=== PATIENT | female | born 1995 | race Hispanic/Latino ===

== ENCOUNTER 2017-05-12 20:48 | Emergency (ER) | payer MEDICAID ==
[2017-05-12 21:17] LABS: BASOPHILS % (AUTO) 0.4 % (0.0-5.0); EOSINOPHILS % (AUTO) 0.7 % (0.0-8.0); HEMATOCRIT 37.4 % (36-48); LYMPHOCYTES % (AUTO) 22.4 % (21.0-51.0); MEAN CORPUSCULAR HEMOGLOBIN 30.7 pg (27.0-33.0); MEAN CORPUSCULAR HGB CONC 35.5 g/dL (32.0-36.0); MEAN CORPUSCULAR VOLUME 86.5 fL (80-100); NEUTROPHILS % (AUTO) 71.5 % (40.0-77.0); PLATELET COUNT (AUTO) 283 K/uL (130-400); RED BLOOD CELL COUNT(AUTO) 4.33 MIL/uL (4.00-5.50); RED CELL DISTRIBUTION WIDTH 12.2 % (11.0-15.5); WHITE BLOOD COUNT (AUTO) 10.9 K/uL (4.8-10.8)
[2017-05-12 21:27] LABS: CREATININE 0.6 mg/dL (0.5-1.5); POTASSIUM 3.5 mmol/L (3.5-5.1)
[2017-05-12 21:31] LABS: ALBUMIN 3.2 g/dL (3.5-5.0); BILIRUBIN,TOTAL 0.3 mg/dL (0.2-1.0); TOTAL PROTEIN, SERUM 7.7 g/dL (6.0-8.3)
[2017-05-12] MEDS ORDERED: ONDANSETRON HCL 4 MG/2 ML VIAL ONE (22:27)
== END 2017-05-13 00:08 | disposition home or self-care (01) ==
LOC: EDH 20:48
DX: O21.0 Mild hyperemesis gravidarum (principal); O99.511 Diseases of the respiratory system complicating pregnancy, first trimester; J45.909 Unspecified asthma, uncomplicated; Z3A.13 13 weeks gestation of pregnancy
CPT/HCPCS: 36415; 80053; 85025; 96361; 96374; 99285; J2405

== ENCOUNTER 2018-02-08 15:41 | Emergency (ER) | payer OTHER ==
[~2018-02-08 15:41] MED LIST: FERR-82 PO; FOLI0.4T2 PO; PREN-66 PO
[2018-02-08 16:32] LABS: RAPID GROUP A STREP NEGATIVE (NEGATIVE)
== END 2018-02-08 17:28 | disposition home or self-care (01) ==
LOC: EDH 15:41
DX: J06.9 Acute upper respiratory infection, unspecified (principal); B97.89 Other viral agents as the cause of diseases classified elsewhere; J45.909 Unspecified asthma, uncomplicated; Z88.0 Allergy status to penicillin; Z98.890 Other specified postprocedural states
CPT/HCPCS: 87804; 87880

== ENCOUNTER 2019-09-06 01:43 | Emergency (ER) | payer OTHER ==
[2019-09-06] MEDS ORDERED: OXYMETAZOLINE HCL SPRAY 15 ML BOTTLE ONE (02:29)
[2019-09-06] MEDS ORDERED: DIPHENHYDRAMINE HCL 25 MG CAPSULE ONE (02:38)
== END 2019-09-06 03:55 | disposition home or self-care (01) ==
LOC: EDH 01:43
DX: S02.2XXA Fracture of nasal bones, initial encounter for closed fracture (principal); R09.81 Nasal congestion; J45.909 Unspecified asthma, uncomplicated; Z88.0 Allergy status to penicillin; X58.XXXA Exposure to other specified factors, initial encounter; Y93.89 Activity, other specified; Y92.89 Other specified places as the place of occurrence of the external cause; Y99.8 Other external cause status
CPT/HCPCS: 70486; 81025; 99284; Q0163

== ENCOUNTER 2020-07-02 07:27 | Emergency (ER) | payer OTHER ==
[~2020-07-02 07:27] MED LIST changes: -FOLI0.4T2 PO; +FOLI0.4T6 PO
[2020-07-02] MEDS ORDERED: BENZONATATE 100 MG CAPSULE PO ONE (07:41)
[2020-07-02] MEDS ORDERED: ACETAMINOPHEN 325 MG TAB ONE (08:10)
[2020-07-02] MEDS ORDERED: PREDNISONE 20 MG TABLET ONE (08:17)
== END 2020-07-02 08:29 | disposition home or self-care (01) ==
LOC: EDH 07:27
DX: J06.9 Acute upper respiratory infection, unspecified (principal); J45.909 Unspecified asthma, uncomplicated; Z88.0 Allergy status to penicillin; Z86.16 Personal history of COVID-19

== ENCOUNTER 2020-12-04 13:27 | Emergency (ER) | payer OTHER ==
[~2020-12-04] VITALS: Ht 162.6 cm; Wt 93.0 kg
[2020-12-04 14:00] VITALS: BP 143/70
[2020-12-04 14:22] LABS: BASOPHILS % (AUTO) 0.3 % (0.0-5.0); EOSINOPHILS % (AUTO) 0.4 % (0.0-8.0); LYMPHOCYTES % (AUTO) 6.2 % (21.0-51.0); MEAN CORPUSCULAR HEMOGLOBIN 28.3 pg (27.0-33.0); MEAN CORPUSCULAR HGB CONC 34.1 g/dL (32.0-36.0); MONOCYTES % (AUTO) 3.1 % (3.0-13.0); NEUTROPHILS % (AUTO) 89.5 % (40.0-77.0); PLATELET COUNT (AUTO) 314 K/uL (130-400); RED BLOOD CELL COUNT(AUTO) 4.46 MIL/uL (4.00-5.50); WHITE BLOOD COUNT (AUTO) 13.3 K/uL (4.8-10.8)
[2020-12-04] MEDS ORDERED: 0.9%NACL 1000ML 1,000 ML IV SCH (14:30)
[2020-12-04] MEDS ORDERED: ACETAMINOPHEN 500 MG TABLET PO ONE (14:30)
[2020-12-04 14:36] LABS: CREATININE 0.6 mg/dL (0.5-1.5); POTASSIUM 3.6 mmol/L (3.5-5.1)
[2020-12-04 14:42] LABS: ALBUMIN 3.1 g/dL (3.5-5.0); BILIRUBIN,TOTAL 0.5 mg/dL (0.2-1.0)
[2020-12-04 14:46] LABS: APPEARANCE,URINE CLEAR (CLEAR); BILIRUBIN,URINE NEGATIVE (NEGATIVE); COLOR,URINE YELLOW (YELLOW); GLUCOSE, URINE (UA) NEGATIVE (NEGATIVE); KETONES,URINE >=80 mg/dL (NEGATIVE); LEUKOCYTE ESTERASE ,URINE NEGATIVE (NEGATIVE); NITRATE,URINE NEGATIVE (NEGATIVE); OCCULT BLOOD,URINE NEGATIVE (NEGATIVE); PH,URINE 8.5 (5.0-8.0); PROTEIN,URINE TRACE mg/dL (NEGATIVE)
[2020-12-04 14:47] LABS: INR 0.99 (0.85-1.15); PROTHROMBIN TIME 10.8 SEC (9.6-11.6)
[2020-12-04 15:00] LABS: BACTERIA,URINE Few /HPF (None Seen); MUCUS,URINE Rare LPF (None Seen); RBC,URINE 0-1 /HPF (0-1); SQUAMOUS EPITHELIAL CELL,UR Few /HPF (0-2); WBC,URINE 0-1 /HPF (0-1)
[2020-12-04] MEDS ORDERED: CEFTRIAXONE 1G VIAL IVP ONE (15:30)
[2020-12-04 15:31] LABS: CRP QUANTITATIVE 59.6 mg/L (0.00-9.0)
[2020-12-04] MEDS ORDERED: ACET-2247 PO (16:09)
[2020-12-04] MEDS ORDERED: CEPH500B PO (16:09)
== END 2020-12-04 16:50 | disposition home or self-care (01) ==
LOC: EDH 13:27
DX: O23.41 Unspecified infection of urinary tract in pregnancy, first trimester (principal); O99.511 Diseases of the respiratory system complicating pregnancy, first trimester; J06.9 Acute upper respiratory infection, unspecified; Z20.822 Contact with and (suspected) exposure to COVID-19; Z3A.12 12 weeks gestation of pregnancy
CPT/HCPCS: 36415; 76801; 80053; 81001; 83605; 84702; 85025; 85610; 85730; 86140; 87040 ×2; 87635; 87804 ×2; 87880; 93005; 96361 ×2; 96374; 99285; C9803

== ENCOUNTER 2021-04-02 00:33 | Observation (INO) | payer OTHER ==
[~2021-04-02] VITALS: Ht 154.9 cm; Wt 97.5 kg
[~2021-04-02 00:33] MED LIST changes: +ACET-2247 PO; +CEPH500B PO
[2021-04-02 00:36] VITALS: BP 118/73
[2021-04-02] MEDS ORDERED: LACTATED RINGERS 1000ML 1,000 ML IV SCH (01:00)
[2021-04-02 01:20] LABS: APPEARANCE,URINE Clear (CLEAR); BILIRUBIN,URINE Negative (NEGATIVE); COLOR,URINE Yellow (YELLOW); GLUCOSE, URINE (UA) Negative (NEGATIVE); KETONES,URINE Negative (NEGATIVE); LEUKOCYTE ESTERASE ,URINE Trace (NEGATIVE); NITRATE,URINE Negative (NEGATIVE); OCCULT BLOOD,URINE Negative (NEGATIVE); PH,URINE 6.5 (5.0-8.0); PROTEIN,URINE Trace mg/dL (NEGATIVE)
[2021-04-02 01:27] LABS: AMPHET/METH SCREEN,URINE NEGATIVE (NEGATIVE); BARBITURATE SCREEN, URINE NEGATIVE (NEGATIVE); BENZODIAZEPINES SCREEN,URINE NEGATIVE (NEGATIVE); CANNABINOID SCREEN,URINE NEGATIVE (NEGATIVE); COCAINE SCREEN,URINE NEGATIVE (NEGATIVE); OPIATE SCREEN,URINE NEGATIVE (NEGATIVE); PHENCYCLIDINE SCREEN,URINE NEGATIVE (NEGATIVE)
[2021-04-02 01:36] LABS: INFLUENZA TYPE A POSITIVE FOR TYPE A (NEG); INFLUENZA TYPE B NEGATIVE FOR TYPE B (NEG)
[2021-04-02 01:40] LABS: BACTERIA,URINE None Seen /HPF (None Seen); RBC,URINE None Seen /HPF (0-1); SQUAMOUS EPITHELIAL CELL,UR Few /HPF (0-2); WBC,URINE 0-1 /HPF (0-1)
[2021-04-02 02:07] LABS: AMPHET/METH SCREEN,URINE NEGATIVE (NEGATIVE); BARBITURATE SCREEN, URINE NEGATIVE (NEGATIVE); BENZODIAZEPINES SCREEN,URINE NEGATIVE (NEGATIVE); CANNABINOID SCREEN,URINE NEGATIVE (NEGATIVE); COCAINE SCREEN,URINE NEGATIVE (NEGATIVE); OPIATE SCREEN,URINE NEGATIVE (NEGATIVE); PHENCYCLIDINE SCREEN,URINE NEGATIVE (NEGATIVE)
[2021-04-02] MEDS ORDERED: OSELTAMIVIR PHOSPHATE 75 MG CAP ONE (02:11)
[2021-04-02] MEDS ORDERED: GUAIFENESIN-DM 200/20 MG 10 ML ONE (02:11)
[2021-04-02] MEDS ORDERED: OSELTAMIVIR PHOSPHATE 75 MG CAP PO SCH (02:30)
[2021-04-02] MEDS ORDERED: GUAIFENESIN-DM 200/20 MG 10 ML PO ONE (02:30)
== END 2021-04-02 02:55 | disposition home or self-care (01) ==
LOC: EDH 00:33 → LDH 00:34
PROVIDERS: ADMIT Obstetrics & Gynecology; ATTEND Obstetrics & Gynecology
DX: O60.03 Preterm labor without delivery, third trimester (principal); Z20.822 Contact with and (suspected) exposure to COVID-19; O26.893 Other specified pregnancy related conditions, third trimester; R05.9 Cough, unspecified; R50.9 Fever, unspecified; R09.81 Nasal congestion; R52 Pain, unspecified; O99.613 Diseases of the digestive system complicating pregnancy, third trimester; K59.00 Constipation, unspecified; Z3A.31 31 weeks gestation of pregnancy
CPT/HCPCS: 80305 ×2; 81001; 87426; 87804 ×2; 96360; G0378 ×2; G0379

== ENCOUNTER 2023-07-08 21:50 | Emergency (ER) | payer OTHER ==
[~2023-07-08] VITALS: Ht 162.6 cm; Wt 85.3 kg
[2023-07-08 22:23] VITALS: BP 135/103; PULSE 101; RESP 18; O2SAT 98
[2023-07-08 22:41] LABS: BASOPHILS # (AUTO) 0.04 K/uL (0.00-0.20); BASOPHILS % (AUTO) 0.5 % (0.0-5.0); EOSINOPHILS # (AUTO) 0.16 K/uL (0.00-0.70); EOSINOPHILS % (AUTO) 1.9 % (0.0-8.0); HEMATOCRIT 39.1 % (36-48); IMMATURE GRANULOCYTE ABSOLUTE 0.03 K/uL (0-1); MEAN CORPUSCULAR HEMOGLOBIN 28.5 pg (27.0-33.0); MEAN CORPUSCULAR VOLUME 81.5 fL (79-99); MONOCYTES # (AUTO) 0.5 K/uL (0.1-1.0); MONOCYTES % (AUTO) 6.1 % (3.0-13.0); NEUTROPHILS # (AUTO) 4.8 K/uL (1.8-7.7); NEUTROPHILS % (AUTO) 56.2 % (40.0-77.0); PLATELET COUNT (AUTO) 290 K/uL (130-400); RED CELL DISTRIBUTION WIDTH 12.4 % (11.0-15.5); WHITE BLOOD COUNT (AUTO) 8.6 K/uL (4.8-10.8)
[2023-07-08] MEDS: ACETAMINOPHEN 500 MG TABLET PO ONE (22:43)
[2023-07-08 22:49] LABS: CREATININE 0.7 mg/dL (0.5-1.0); POTASSIUM 4.3 mmol/L (3.5-5.1)
[2023-07-08] MEDS ORDERED: CYCL-309 PO (22:59)
[2023-07-08] MEDS ORDERED: IBUP-2077 PO (22:59)
[2023-07-08] MEDS ORDERED: METH4TAB3 PO (22:59)
[2023-07-08] MEDS: CYCLOBENZAPRINE HCL 10 MG TABLET PO ONE (23:08)
== END 2023-07-08 23:21 | disposition home or self-care (01) ==
LOC: EDH 21:50
DX: M54.41 Lumbago with sciatica, right side (principal); J45.909 Unspecified asthma, uncomplicated
CPT/HCPCS: 36415; 80048; 84703; 85025

== ENCOUNTER 2024-04-21 18:24 | Emergency (ER) | payer OTHER ==
[~2024-04-21] VITALS: Ht 154.9 cm; Wt 99.3 kg
[~2024-04-21 18:24] MED LIST changes: +CYCL-309 PO; +IBUP-2077 PO; +METH4TAB3 PO
--- NOTE | 2024-04-21 19:03 | HMCIMG ---
CT HEAD WITHOUT CONTRAST INDICATION: Head injury TECHNIQUE: Noncontrast axial helical CT images from the vertex through the skull base using 5 mm slice thickness without contrast material. CT was performed with one or more of the following dose reduction techniques: Automated exposure control, adjustment of the mA and/or kV according to patient size, or use of iterative reconstruction technique. COMPARISON: None FINDINGS: The cerebral and cerebellar hemispheres are age-appropriate in appearance. No evidence for abnormal extra-axial fluid collections or masses. The ventricles and sulci are normal in size and configuration. No evidence for intracranial parenchymal, epidural, or subdural hemorrhage, mass effect or midline shift. The thomas-white matter differentiation is well preserved. No secondary evidence to suggest acute ischemia. The brainstem and cerebellum appear normal. The visualized orbits appear unremarkable. The visible paranasal sinuses and mastoid air cells are clear. The calvarium appears normal. IMPRESSION: No acute intracranial process identified.
--- NOTE | 2024-04-21 19:15 | ERN ---
General Chief Complaint: Headache Stated Complaint: HEAD INJURY Time Seen by MD: 18:35 Time Seen by Midlevel: 18:35 Source: patient History of Present Illness Initial Comments Patient is a 21-year-old female with no significant past medical history presenting to the emergency department with a frontal headache/contusion. Patient states she was jumping on her bed yesterday while she was playing with her kids when she accidentally hit wall. This morning she woke up with excruciating pain to the frontal aspect of her scalp. She became concerned and report to the ER for further evaluation. Denies being on any blood thinners. Denies any lost of consciousness. Denies any vision changes or any other symptoms at this time. Allergies: Coded Allergies: No Known Drug Allergies (Unverified Allergy, Unknown, 07/08/23) Home Meds Active Scripts Methylprednisolone (Medrol) 4 Mg Tab.ds.pk, 4 MG PO AD, #1 UNIT Prov:OZZY WOMACK NP 07/08/23 Ibuprofen (Ibuprofen 800 mg Tab) 800 Mg Tab, 800 MG PO Q8H PRN for fever or pain, #30 TAB 0 Refills Prov:OZZY WOMACK NP 07/08/23 Cyclobenzaprine HCl (Cyclobenzaprine HCl) 10 Mg Tablet, 10 MG PO TID for 10 Days, #30 TAB Prov:OZZY WOMACK NP 07/08/23 Acetaminophen (Tylenol) 325 Mg Tablet, 650 MG PO Q4HPRN, #100 TAB Prov:BERTA MANTILLA 12/04/20 Cephalexin Monohydrate (Keflex) 500 Mg Cap, 500 MG PO TID for 7 Days, #21 CAP Prov:BERTA MANTILLA 12/04/20 Reported Medications Ferrous Sulfate (Iron) 325 Mg Tablet, 325 MG PO BID, TAB 11/03/17 Folic Acid (Folic Acid) 0.4 Mg Tablet, 0.4 MG PO DAILY, TAB 11/03/17 [id number]/Iron Fumarate/FA/Dss ( 19 Tablet) 1 Each Tablet, 1 EACH PO DAILY, TAB 11/03/17 Past Medical History Past Medical History: No Pertinent History, Asthma Past Surgical History: Other Surgical History Other: BILATERAL EAR TUBES Female( History) History: Not Applicable LMP: Mar 30, 2024 : 2 Para: 1 Aborts: 0 ROS Dictation CONSTITUTIONAL: Negative except for HPI HEAD/FACE: Negative except for HPI EENT: Negative except for HPI RESPIRATORY: Negative except for HPI GASTROINTESTINAL/ABDOMINAL: Negative except for HPI GENITOURINARY: Negative except for HPI MUSCULOSKELETAL: Negative except for HPI INTEGUMENTARY: Negative except for HPI NEUROLOGICAL/PSYCH: Negative except for HPI HEMATOLOGIC/LYMPHATIC: Negative except for HPI All Systems Negative, Except as noted above. 13 point review of systems assessed and all negative except for above. Physical Exam Physical Exam Dictation Vital Signs reviewed General Appearance: Alert, oriented x 3, no acute distress, well developed, nourished. Head and Face: non-traumatic. Eyes: PERRL, pink conjunctivas, eyelid no trauma, anterior chamber with arcus se nilis. Ears: Pinnas intact and no signs of trauma or erythema ear canals clear and no discharge TM no erythema Nose: No discharge, no bleeding. Oropharynx: Mouth normal, tongue pink, pharynx clear,no erythema, tonsils no exudates, no abscesses noted, mucous membrane moist Neck: Supple, non-tender, no thyromegaly, no masses, no JVD, no bruits Breast:Deferred Chest:No tenderness, no crepitus, no paradoxical movement, no retractions Lungs:Clear, well-ventilated, symmetric, no rales, no wheezing, no rhonchi, no stridor, good breath sounds bilaterally Heart: Regular rate, regular rhythm, no murmur, no gallops Vascular: no peripheral edema, Abdomen: Soft, positive bowel sounds, nondistended, no guarding, nontender, no rebound, no masses no hepatomegaly, no splenomegaly, no Delgado's sign, no hernias. Rectal: Deferred Genital: Deferred Neurological: Normal speech, motor function intact, sensory function intact Musculoskeletal: Neck nontender, full range of motion, back nontender, full range of motion, Extremities: nontender, full range of motion Skin: Color pink, dry, no turgor, no rash, no lacerations, no abrasions, no contusions. Lymphatic: Deferred MDM MDM: Differential diagnosis: Closed head injury, skull fracture, intracranial bleed, subdural hematoma There are no social concerns with this patient. Prescription drug management Prescriptions will include: None Medical management and examination interpretation discussions were had by me with other qualified healthcare professionals as indicated for the patient's care. ED Course Orders Procedure Category Date Status Time Ct Head/Brain W/O CT 04/21/24 Resulted Contrast 18:35 Vital Signs Date Time Temp Pulse Resp B/P (MAP) Pulse Ox O2 Delivery O2 Flow Rate FiO2 04/21/24 20:07 98.2 73 18 123/69 99 Room Air* 0 21 04/21/24 18:32 98.8 85 20 119/57 99 Room Air 0 DX & DISP Disposition: Discharge Departure Impression: Primary Impression: Scalp contusion Condition: Stable Additional Instructions: Your CT scan of the head does not show any skull fracture or intracranial bleed. You may take Tylenol and Motrin for pain. Follow up with your primary care doctor. Return to the ER if you develop any new or worsening symptoms Referrals: SELF,REFERRAL (PCP) Time of Disposition: 19:15 I have reviewed the case, and I agree with, Diagnosis and Plan I performed the substantive portion of the visit. I have reviewed and personally made and approve the management plan that is documented in the note by myself or the MICHAEL. I acknowledge for responsibility for the patient's management plan. SKIP SPRINGER Apr 21, 2024 19:15
[2024-04-21 20:07] VITALS: BP 123/69; PULSE 73; RESP 18; TEMP 98.3; O2SAT 99
== END 2024-04-21 20:15 | disposition home or self-care (01) ==
LOC: EDH 18:24
DX: S00.03XA Contusion of scalp, initial encounter (principal); Z79.899 Other long term (current) drug therapy; W06.XXXA Fall from bed, initial encounter; Y93.89 Activity, other specified; Y92.89 Other specified places as the place of occurrence of the external cause; Y99.8 Other external cause status
CPT/HCPCS: 70450; 99284